=== PATIENT | female | born 1980 | race Caucasian/White ===

== ENCOUNTER 2017-09-19 05:42 | Day surgery (SDC) | payer SELFPAY ==
[2017-09-10 09:29] VITALS: Ht 175.3 cm; Wt 64.5 kg
[~2017-09-19] VITALS: Ht 175.3 cm; Wt 64.5 kg
[~2017-09-19 05:42] MED LIST: CHOL100010 PO; CYAN10005 PO; FERR1TAB23 PO; FOLATE PO; HYD10 PO; PHYT100T PO; PYRI100T4 PO; THYR90TA PO
[2017-09-19] MEDS ORDERED: LACTATED RINGER'S 1000ML 1,000 ML IV SCH (06:00)
[2017-09-19] MEDS ORDERED: ONDANSETRON INJ 2 MG/ML 2 ML VIAL IV PRN ×2 (06:30→10:00)
[2017-09-19] MEDS ORDERED: HYDROmorphone INJ 1 MG/ML SYR IV PRN (06:30)
[2017-09-19] MEDS ORDERED: PHENYLEPHRINE 100MCG/ML 5ML SYR IV PRN (06:30)
[2017-09-19] MEDS ORDERED: PROMETHAZINE HCL INJ 12.5 MG in SODIUM CHLORIDE 0.9% 50ML 50 ML IV PRN (06:30)
[2017-09-19] MEDS ORDERED: ATROPINE SULFATE 0.1 MG/ML 5ML SYR IV PRN (06:30)
[2017-09-19] MEDS ORDERED: EpHEDrine SULFATE INJ 50 MG/ML AMP IV PRN (06:30)
[2017-09-19] MEDS ORDERED: ACETAMINOPHEN 1000 MG/100 ML IV IV ONE ×2 (06:30→06:50)
[2017-09-19 06:33] VITALS: BP 107/76; PULSE 140; TEMP 36.5; O2SAT 99
--- NOTE | 2017-09-19 06:59 | History & Physical Bridge Note ---
H&P Re-Evaluation Bridge Note: I have examined the patient, reviewed the History & Physical and in the interval since the performance of the History & Physical I have noted the following changes of clinical significance: patient expressed preference for inframammary fold incision rather than periareolar due to concerns regarding depression of NAC as she has seen online. Discussed this appearance has more to do with initial implant placement/size of implant and amount of breast tissue more than explant incision location and that she will most likely still have this appearance. She prefers inframmmary incision.
[2017-09-19] MEDS ORDERED: LIDOCAINE HCL 2% 2 ML VIAL (20MG/ML) ONE (07:01)
[2017-09-19] MEDS ORDERED: ONDANSETRON INJ 2 MG/ML 2 ML VIAL ONE ×2 (07:01)
[2017-09-19] MEDS ORDERED: PROPOFOL IV EMULSION 10 MG/ML 20 ML VIAL IV ONE (07:01)
[2017-09-19] MEDS ORDERED: HYDROmorphone INJ 2 MG/ML SYR/VIAL ONE (07:02)
[2017-09-19] MEDS ORDERED: FENTANYL CITRATE INJ 50 MCG/1 ML 2 ML VIAL ONE (07:02)
[2017-09-19] MEDS ORDERED: MIDAZOLAM HCL 1 MG/ML 2ML VIAL ONE (07:02)
[2017-09-19] MEDS ORDERED: SODIUM CHLORIDE 0.9% INJ 10 ML VIAL ONE (07:07)
[2017-09-19] MEDS ORDERED: BUPIVACAINE 0.25% 30 ML VIAL ONE (07:11)
[2017-09-19] MEDS ORDERED: LIDOCAINE/EPINEPHRINE 1% 20 ML VIAL ONE (07:12)
[2017-09-19] MEDS: CEFAZOLIN 2000MG IV PUSH 15 ML IV SCH ×2 (07:29→10:32)
[2017-09-19] MEDS ORDERED: GENTAMICIN SULFATE 40 MG/ML 2 ML VIAL ONE (07:45)
[2017-09-19] MEDS ORDERED: CEFAZOLIN SOD 1 GM VIAL ONE (07:46)
[2017-09-19] MEDS ORDERED: BACITRACIN 50000 UNIT VIAL ONE (07:46)
[2017-09-19] MEDS ORDERED: NEOSTIGMINE METHYLSULFATE 5 MG/5 ML SYR ONE (09:31)
[2017-09-19] MEDS ORDERED: GLYCOPYRROLATE INJ 0.2 MG/ML VIAL ONE (09:31)
--- NOTE | 2017-09-19 09:50 | [facility] Post Operative Brief Note ---
Immediate Operative Summary Operative Date Sep 19, 2017. Pre-Operative Diagnosis back pain Post-Operative Diagnosis same Procedure(s) Performed Bilateral Breast Implant Removal with Capsulectomy Surgeon Dr. Sasha Phillips Maintenance Repairman Surgeon(s) Sarina Duncan PA-C Estimated Blood Loss 1 Findings Consistent with Post-Op Diagnosis intact bilateral saline implants McGhan 400 cc, no seroma/infxn, nl capsule Specimens A.) Explanted Left Breast Implant with Capsule B.) Explanted Right Breast Implant with Capsule Drains RADHA x2 Anesthesia Type General Complication(s) none Disposition Disposition: Recovery Room / PACU
[2017-09-19] MEDS ORDERED: SODIUM CHLORIDE 0.9% 1000ML 1,000 ML IV SCH (09:53)
--- NOTE | 2017-09-19 09:56 | Discharge Instructions ---
Discharge Instructions Date of Service Sep 19, 2017. Admission Reason for Admission: History Of Bilateral Breast Implants Discharge Discharge Diagnosis / Problem: history of bilateral implants Discharge Goals Goal(s): Decrease discomfort, Improve function Activity Recommendations Activity Limitations: as noted below ACTIVITY RECOMMENDATIONS: __Normal activities _x_No bending, lifting or straining __No driving __Driving allowed when you are off pain medications _x_Walking permitted __You should have help at home for ___ days DRESSINGS: __No dressings required _x_Keep dressings dry/in place until first office visit. Do not wear support bra , but bring surgical bra to your office visit tomorrow __Remove dressings ___ and leave dressings off __Apply ice ___ days __Remove dressings and reapply garment __Apply antibiotic ointment (Bacitracin, Neosporin, etc) to wounds 3-4 times/ day for 10 days BATHING: _x_Keep dressings dry x__Sponge bathing permitted __Showering permitted x__No swimming, hot tubs or soaking in a tub or showering MEDICATIONS: Resume previous medications unless instructed otherwise by your surgeon. _x_Do not use aspirin, Motrin, Advil or Ibuprofen as these may promote bleeding. Please use Tylenol. _x_Prescription(s) provided: pain meds prescribed at your last office visit OTHER INSTRUCTIONS: _x_Record drain output 2-3 times per day. Drain is ready to be removed when output is 10cc/24 hours SPECIAL CARE INSTRUCTIONS: * It is normal to have a mild fever after surgery. If your temperature is higher than 101.5 degrees F, please call the office at [phone]. * Constipation is a typical side effect of pain medication. An over-the- counter stool softener will help relieve this. * Leaking around surgical drains may occur and should not cause concern. Sometimes these drains become clogged. If this happens, remove the bulb and milk the clot out of the tube, then replace the bulb. * Drainage from wounds after liposuction is normal and should be expected. Garments will become soiled. You should protect furniture and bedding. This drainage should mostly subside within 2-3 days. Leave garments in place unless instructed to remove them. * If you have unusual drainage from a wound or are concerned you have an infection or have any questions or concerns, please call the office at [phone]. FOLLOW UP VISIT: If not already scheduled, please call the office, , when you return home after surgery to schedule an appointment to be seen in __1_ days. . Current Hospital Diet Patient's current hospital diet: Discharge Diet Recommended Diet: Regular Diet Procedures Procedures Performed: Bilateral Breast Implant Removal with Capsulectomy Pending Studies Studies pending at discharge: yes List of pending studies: pathology Medical Emergencies . Who to Call and When: Medical Emergencies: If at any time you feel your situation is an emergency, please call 911 immediately. . Non-Emergent Contact Non-Emergency issues call your: Primary Care Provider, Surgeon . "Provider Documentation" section prepared by Sarina Duncan. . VTE Core Measure Inpt VTE Proph given/why not?: SCD's [place] Drug Monitoring Program Search Results: no issues identified
[2017-09-19] MEDS ORDERED: ACETAMINOPHEN IV 1,000 MG in EMPTY BAG 0 ML IV PRN (10:00)
[2017-09-19] MEDS ORDERED: ACETAMINOPHEN 325 MG TAB PO PRN (10:00)
[2017-09-19] MEDS ORDERED: OXYCODONE/ACETAMINOPHEN 5-325 TAB PO PRN ×2 (10:00)
[2017-09-19] MEDS ORDERED: METOCLOPRAMIDE HCL INJ 5 MG/ML 2 ML VIAL IV PRN (10:00)
[2017-09-19] MEDS: FENTANYL CITRATE INJ 50 MCG/1 ML 2 ML VIAL IV PRN ×2 (10:07→10:13)
--- NOTE | 2017-09-19 10:42 | Anesthesiology Progress Note ---
Anesthesia Post Op Note Date & Time Sep 19, 2017 at 10:41 Vital Signs Pain Intensity: 4 Vital Signs Past 12 Hours Date Time Temp Pulse Resp B/P (MAP) Pulse Ox O2 Delivery O2 Flow Rate FiO2 09/19/17 10:30 100 16 128/69 98 Room Air 09/19/17 10:20 102 16 128/75 100 Oxymask 10 09/19/17 10:10 93 16 123/67 100 Oxymask 10 09/19/17 10:00 36.4 116 16 99/68 100 Oxymask 10 09/19/17 06:33 36.5 140 18 107/76 (86) 99 Room Air Notes Mental Status: alert / awake / arousable, participated in evaluation Pt Amnestic to Procedure: Yes Nausea / Vomiting: adequately controlled Pain: adequately controlled Airway Patency, RR, SpO2: stable & adequate BP & HR: stable & adequate Hydration State: stable & adequate Anesthetic Complications: no major complications apparent Awake, doing well, VSS. No complaints. Ready for d/c
[2017-09-19 10:45] VITALS: BP 127/71; PULSE 98; TEMP 36.8; O2SAT 99
[2017-09-19 11:15] VITALS: BP 135/70; PULSE 90; TEMP 36.8; O2SAT 98
[2017-09-19 11:45] VITALS: BP 118/60; PULSE 83; TEMP 36.8; O2SAT 95
[2017-09-19 12:45] VITALS: BP 104/55; PULSE 83; TEMP 36.8; O2SAT 97
--- NOTE | 2017-09-19 13:55 | OPERATIVE REPORT ---
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 POSTOPERATIVE DIAGNOSES: Same. PROCEDURE: Bilateral breast implant removal with capsulectomy. SURGEON: Dr. Sasha Phillips. RESIDENTIAL REAL ESTATE AGENT: Sarina Duncan PA-C. ANESTHESIA: General. COMPLICATIONS: None. INDICATION FOR THE PROCEDURE: The patient is a 37-year-old female with a history of breast augmentation performed 13 years ago, desiring elective removal due to concerns related to autoimmune conditions. We discussed options for removal and she understood that implant removal may help with mechanical pain symptoms, but would not necessarily help with concerns related to autoimmune conditions. We also discussed the likely poor cosmetic outcome necessitating a second cosmetic surgical procedure following explantation. BRIEF DESCRIPTION OF THE PROCEDURE: Risks, benefits, and alternatives of the procedure were explained to the patient, who agreed and signed consent. On the morning of surgery, she asked me to perform inframammary fold incision as opposed to the initially planned nipple areolar complex incision due to concerns regarding cosmesis. We did discuss that as her implants had been previously placed through the nipple areolar complex incision that she may have a depression of the nipple-areolar complex following the procedure. Once the patient was marked, she was brought to the operating room, where she was positioned supine and placed under general anesthesia without incident. Surgical site was prepped and draped sterilely. A time-out procedure was performed. I began with the left side. 1% lidocaine with epinephrine was used to anesthetize the breast parenchyma as well as the inframammary fold incision. I marked the incision up from the inframammary fold a bit in order to have the incision be concealed along the fold once the implants were removed. Incision was made using a 15 blade scalpel. Incision was deepened through dermis using electrocautery and into underlying breast parenchyma. There was less than 1 cm of breast tissue overlying the implant. I was able to identify the breast capsule, which was noted to be thin and pliable in the inferior pole. I performed as much dissection as I could with the implant in situ, dissecting anterior to the implant as well as posterior beneath the posterior capsule. Once I was no longer able to further reach the capsule via this technique, capsule was incised and the implant was removed. It was noted to be intact. It was McGhan implant with a 400 mL fill volume. I then proceeded with additional dissection using a lighted retractor and electrocautery of the capsule until the capsule was completely removed. It should be noted that the implant was intact. There was no evidence of infection, no evidence of thickened capsular or capsular contracture, capsule was thin and pliable and fairly translucent. It was not able to be removed as one intact specimen due to its very thin pliable nature, but I was able to remove the entire capsule. Hemostasis was achieved with electrocautery. 0.25% Marcaine plain was used to anesthetize the breast parenchyma and pocket after the pocket had been irrigated with sterile saline. A similar procedure was undertaken on the right side. It should be noted that there was decreased tissue volume posterior to the nipple-areolar complex on both sides. I tried to minimize the amount of breast tissue removed, although a small amount of breast tissue and pectoralis muscle was removed with the capsulectomy specimens. Following bilateral capsulectomy, the wound beds were inspected and hemostasis was achieved using electrocautery. A 15-[place] Go drains were placed into the wound beds bilaterally and sutured into place using 3-0 nylon suture. Wounds were closed using 2-0 Vicryl deep dermal sutures and 3-0 PDS interrupted superficial dermal sutures. Skin was closed using 3-0 Monocryl running subcuticular suture. Dermabond was applied. Xeroform was placed around the drain sites and dry dressings were placed. I debated placement of a surgical bra following the procedure; however, there was significant skin laxity and I had concerns that placement of the bra at this point in time might lead to tacking down of tissue and poor scarring, resulting in a poor cosmetic outcome. The patient will be reevaluated in my office tomorrow and we can determine at that time whether a surgical bra would be necessary. The procedure was tolerated well. The patient was awakened and transferred to recovery in satisfactory condition. No complications. Intact implants and capsules were sent as specimens. Photographs were taken in the operating room as requested by the patient of the implant, capsules, and pocket dissection. I attest to the content of the Intraoperative Record and any orders documented therein. Any exceptions are noted below. BC
== END 2017-09-19 13:15 | disposition home health service (06) ==
LOC: C.ACU 05:42
PROVIDERS: ATTEND Plastic Surgery
DX: Z45.811 Encounter for adjustment or removal of right breast implant (principal); Z45.812 Encounter for adjustment or removal of left breast implant; E06.3 Autoimmune thyroiditis; E27.40 Unspecified adrenocortical insufficiency; E03.9 Hypothyroidism, unspecified; Z88.2 Allergy status to sulfonamides; Z88.1 Allergy status to other antibiotic agents; Z98.890 Other specified postprocedural states